=== PATIENT | male | born 1970 | race Two or more races ===

== ENCOUNTER → 2025-01-05 14:36 | Outpatient (REF) | payer OTHER, SELFPAY | LOC: DHSLP 14:36 | PROVIDERS: ATTENDING PHYSICIAN Internal Medicine; FAMILY PHYSICIAN Family Medicine | DX: G47.33 Obstructive sleep apnea (adult) (pediatric) (principal); R09.02 Hypoxemia | CPT/HCPCS: 95800 ==

== ENCOUNTER 2025-01-30 06:19 | Day surgery (SDC) | payer OTHER, SELFPAY | END 2025-01-30 13:34 | disposition home or self-care (01) | LOC: GI 06:19 | PROVIDERS: ATTENDING PHYSICIAN Internal Medicine Gastroenterology | DX: Z12.11 Encounter for screening for malignant neoplasm of colon (principal); K64.8 Other hemorrhoids; K62.89 Other specified diseases of anus and rectum; D12.5 Benign neoplasm of sigmoid colon; D12.4 Benign neoplasm of descending colon | CPT/HCPCS: 45385; 88305 ==